=== PATIENT | female | born 1960 | race African-American/Black ===

== ENCOUNTER 2017-03-23 09:02 | Emergency (ER) | payer OTHER ==
[~2017-03-23] VITALS: Ht 167.6 cm; Wt 90.7 kg
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
[2017-03-23] MEDS ORDERED: IV NORMAL SALINE 1,000ML 1,000 ML IV SCH (09:30)
[2017-03-23] MEDS ORDERED: ASPIRIN 81 MG TAB.CHEW PO ONE (09:30)
[2017-03-23] MEDS ORDERED: 0.9 % SODIUM CHLORIDE 10 ML DISP.SYRIN. IV PRN (09:30)
--- NOTE | 2017-03-23 09:33 | EKG ---
[address] [address] Test Date: 2017-03-23 Test Time: 09:08:01 Pat Name: FRED LYNCH Department: Room: Gender: F [employer]: : 1960 Requested By: MARIANA PEREZ Order Number: [id number] Reading MD: Kareem Mcnulty Measurements Intervals Allen Rate: 56 P: 59 ND: 188 QRS: 19 QRSD: 76 T: 7 QT: 404 QTc: 392 Interpretive Statements SINUS RHYTHM Electronically Signed On 03-30-2017 8:16:31 CDT by Kareem Mcnulty
[2017-03-23] MEDS ORDERED: KETOROLAC 30 MG/ML VIAL. IV ONE (09:45)
--- NOTE | 2017-03-23 09:54 | RAD ---
EXAM: CHEST 2 VIEWS History: Chest pain COMPARISON: None available. TECHNIQUE: PA and lateral chest radiographs FINDINGS: The cardiomediastinal silhouette is within normal limits. The lungs are clear bilaterally. The costophrenic sulci are clear and well demarcated bilaterally. IMPRESSION: No radiographic evidence of an acute cardiopulmonary abnormality.
--- NOTE | 2017-03-23 10:03 | RAD ---
CT of the head without contrast, 03/23/2017: History: Right arm numbness The ventricles are within normal limits in size. There is no shift of the midline structures. There is no evidence of acute intracranial hemorrhage or mass effect. IMPRESSION: No acute intracranial abnormality is detected. CT of the cervical spine without contrast, 03/23/2017: Noncontrast scans were obtained with multiplanar reconstructions produced. There is moderate disc space narrowing with posterior marginal spurring at C3-4, C4-5 and C5-6. There are mild degenerative changes involving multiple facet joints bilaterally. No fracture or dislocation is identified. At C2-3 there is only minimal posterior annular bulging. At C3-4 there is moderate posterior spurring which is most prominent laterally on both sides with minimal disc bulging. There is borderline narrowing of the central spinal canal and mild bilateral foraminal narrowing. At C4-5 there is moderate posterior disc bulging and marginal spurring. There is mild narrowing of the central spinal canal and mild bilateral foraminal narrowing. At C5-6 there is a moderate posterior disc protrusion at the midline. There is mild associated narrowing of the central spinal canal with mild bilateral foraminal encroachment. The disc margins at C6-7 and C7-T1 were poorly defined due to artifacts. No high-grade central spinal stenosis is seen. There is only minimal foraminal encroachment at C6-7 due to spurring. IMPRESSION: 1. Mild to moderate scattered degenerative changes as described above. 2. Midline posterior disc protrusion at C5-6 with mild associated central spinal stenosis. 3. No acute bony abnormality is detected. PQRS Compliance Statement: One or more of the following individualized dose reduction techniques were utilized for this examination: 1. Automated exposure control 2. Adjustment of the mA and/or kV according to patient size 3. Use of iterative reconstruction technique
[2017-03-23 10:09] LABS: BASO # 0.1 x10^3/uL (0.0-0.2); BASO % 1 % (0-3); EOS # 0.2 x10^3/uL (0.0-0.7); EOS % 3 % (0-3); HEMATOCRIT 42.5 % (36.0-47.0); HEMOGLOBIN 13.4 g/dL (12.0-15.5); LYMPH # 2.3 x10^3/uL (1.0-4.8); LYMPH % 32 % (24-48); MEAN CORPUSCULAR HEMOGLOBIN 22 pg (25-35); MEAN CORPUSCULAR HGB CONC 32 g/dL (31-37); MEAN CORPUSCULAR VOLUME 70 fL (79-100); MONO # 0.6 x10^3/uL (0.0-1.1); MONO % 8 % (0-9); NEUT # 3.9 x10^3uL (1.8-7.7); NEUT % 56 % (31-73); PLATELET COUNT 169 x10^3/uL (140-400); RED BLOOD COUNT 6.03 x10^6/uL (3.50-5.40); RED CELL DISTRIBUTION WIDTH 15.5 % (11.5-14.5); WHITE BLOOD COUNT 7.1 x10^3/uL (4.0-11.0)
[2017-03-23 10:38] LABS: ALBUMIN 3.8 g/dL (3.4-5.0); CALCIUM 9.2 mg/dL (8.5-10.1); CREATININE 0.8 mg/dL (0.6-1.0); GFR 89.5; MAGNESIUM 1.9 mg/dL (1.8-2.4); POTASSIUM 3.8 mmol/L (3.5-5.1); TOTAL BILIRUBIN 0.3 mg/dL (0.2-1.0); TOTAL PROTEIN 7.8 g/dL (6.4-8.2)
[2017-03-23 10:55] LABS: BILIRUBIN,URINE NEG (NEG); CLARITY,URINE CLEAR; COLOR,URINE YELLOW; GLUCOSE,URINE NEG (NEG)
[2017-03-23 10:56] LABS: BACTERIA,URINE 0 /HPF (0-FEW); NITRITE,URINE NEG (NEG); RBC,URINE 0 /HPF (0-2); SQUAMOUS EPITHELIAL CELL,UR OCC /LPF; UROBILINOGEN,URINE 0.2 mg/dL (0.2 mg/dL); WBC,URINE 0 /HPF (0-4)
[2017-03-23] MEDS ORDERED: IOHEXOL 300 MG/ML 75 ML VIAL. IV ONE (11:00)
--- NOTE | 2017-03-23 11:27 | RAD ---
Examination: CT angiography chest. History: History of elevated d-dimer Comparison: None available Technique: Axial CT angiographic images of chest were performed with IV contrast. Coronal sagittal 3-D MIP reformats were performed PQRS Compliance Statement: One or more of the following individualized dose reduction techniques were utilized for this examination: 1. Automated exposure control 2. Adjustment of the mA and/or kV according to patient size 3. Use of iterative reconstruction technique. Findings: The visualized thyroid gland grossly appears unremarkable. The heart size grossly appears unremarkable. The caliber of the aorta grossly appears unremarkable. There is no evidence of filling defect identified in the main pulmonary arteries or visualized lobar, segmental branches of the pulmonary arteries. Minimal bibasal lung atelectasis. The visualized liver, spleen, adrenals grossly appears unremarkable. Mild degenerative changes identified in the thoracic spine. Impression: 1. No evidence of pulmonary embolism. 2. Minimal bibasal lung atelectasis.
[2017-03-23] MEDS ORDERED: NAPR275T59 PO (11:36)
[2017-03-23] MEDS ORDERED: METH-38 PO (11:36)
[2017-03-23 11:43] VITALS: BP 138/66
[2017-03-23 12:11] LABS: PLT ESTIMATE ADEQUATE (ADEQUATE)
[2017-03-23 12:12] LABS: HYPOCHROMIA SLIGHT; MICROCYTOSIS MOD
== END 2017-03-23 11:50 | disposition home or self-care (01) ==
LOC: ER 09:02
DX: M50.10 Cervical disc disorder with radiculopathy, unspecified cervical region (principal); R07.89 Other chest pain; G56.00 Carpal tunnel syndrome, unspecified upper limb; I10 Essential (primary) hypertension
CPT/HCPCS: 36415; 70450; 71020; 71275; 72125; 80053; 81001; 83690; 83735; 83880; 84443; 84484; 85025; 85379; 93005; 96361; 96374; 99285; J1885; Q9967; J7030

== ENCOUNTER → 2018-01-17 | Outpatient (CLI) | payer OTHER ==
[~2018-01-17] MED LIST: METH-38 PO; NAPR275T59 PO
--- NOTE | 2018-01-19 15:53 | RAD ---
DATE: 01/17/2018 EXAM: DIGITAL SCREEN BILAT W/CAD HISTORY: Routine screening COMPARISON: 01/12/2017 This study was interpreted with the benefit of Computerized Aided Detection (CAD). The breast parenchyma shows scattered fibroglandular densities. Breast parenchyma level B. FINDINGS: No new or enlarging breast densities are seen. Scattered benign type calcifications are present. No suspicious microcalcifications are evident. IMPRESSION: Stable mammograms without evidence of malignancy. BI-RADS CATEGORY: 2 BENIGN FINDING(S) RECOMMENDED FOLLOW-UP: 12M 12 MONTH FOLLOW-UP PQRS compliance statement: Patient information was entered into a reminder system with a target due date for the next mammogram. Mammography is a sensitive method for finding small breast cancers, but it does not detect them all and is not a substitute for careful clinical examination. A negative mammogram does not negate a clinically suspicious finding and should not result in delay in biopsying a clinically suspicious abnormality. "Our facility is accredited by the [employer] Mammography Program."
== END | disposition home or self-care (01) ==
LOC: MAMMO 09:52
DX: Z12.31 Encounter for screening mammogram for malignant neoplasm of breast (principal); I10 Essential (primary) hypertension
CPT/HCPCS: 77067